=== PATIENT | male | born 1975 | race Caucasian/White ===

== ENCOUNTER 2019-08-15 10:03 | Emergency (ER) | payer SELFPAY ==
[~2019-08-15] VITALS: Ht 175 cm; Wt 91.0 kg
[~2019-08-15 10:03] MED LIST: AMOX-358 PO
[2019-08-15] MEDS ORDERED: ASPIRIN 81 MG CHEW (CHILDREN'S ASA) ONE (10:13)
[2019-08-15] MEDS ORDERED: NITROGLYCERIN 0.4 MG SL TABS BTL 25'S SL ONE (10:13)
[2019-08-15] MEDS ORDERED: ASPIRIN 81 MG CHEW (CHILDREN'S ASA) PO ONE (10:15)
[2019-08-15] MEDS: NITROGLYCERIN 0.4 MG SL TABS BTL 25'S SL PRN ×2 (10:19→10:28)
--- NOTE | 2019-08-15 10:21 | NUR ---
B/P 122/81
[2019-08-15 10:30] LABS: BASOPHILS % (AUTO) 0 % (0-10); EOSINOPHILS # (AUTO) 0.2 10^3/uL (0.0-0.3); EOSINOPHILS % (AUTO) 3 % (0-10); HEMATOCRIT 47 % (40-54); LYMPHOCYTES % (AUTO) 37 % (12-44); MEAN CORPUSCULAR HEMOGLOBIN 30 PG (25-34); MEAN CORPUSCULAR HGB CONC 34 G/DL (32-36); MEAN CORPUSCULAR VOLUME 88 FL (80-99); MEAN PLATELET VOLUME 9.5 FL (7.4-10.4); MONOCYTES # (AUTO) 0.8 X 10^3 (0.0-1.0); MONOCYTES % (AUTO) 10 % (0-12); NEUTROPHILS # (AUTO) 4.1 X 10^3 (1.8-7.8); NEUTROPHILS % (AUTO) 51 % (42-75); PLATELET COUNT 268 10^3/uL (130-400); RED CELL DISTRIBUTION WIDTH 12.9 % (10.0-14.5); WHITE BLOOD COUNT 8.2 10^3/uL (4.3-11.0)
--- NOTE | 2019-08-15 10:31 | NUR ---
CURRENT C/P 4/10 PT STATES REPRODUCABLE
[2019-08-15 10:36] LABS: INR 0.9 (0.8-1.4); PROTHROMBIN TIME PATIENT 12.5 SEC (12.2-14.7)
[2019-08-15 10:43] LABS: ALANINE AMINOTRANSFERASE 29 U/L (0-55); ALBUMIN 4.6 GM/DL (3.2-4.5); ALKALINE PHOSPHATASE 109 U/L (40-136); BILIRUBIN,TOTAL 0.4 MG/DL (0.1-1.0); BUN/CREATININE RATIO 20; CALCIUM 9.3 MG/DL (8.5-10.1); CARBON DIOXIDE 22 MMOL/L (21-32); CHLORIDE 106 MMOL/L (98-107); CREATININE SERUM 0.91 MG/DL (0.60-1.30); GFR ESTIMATED > 60; GLUCOSE 97 MG/DL (70-105); MAGNESIUM 1.9 MG/DL (1.6-2.4); POTASSIUM 3.9 MMOL/L (3.6-5.0); SODIUM 139 MMOL/L (135-145); TOTAL PROTEIN 7.4 GM/DL (6.4-8.2)
--- NOTE | 2019-08-15 11:04 | Diagnostic Imaging Report ---
INDICATION: Severe chest pain. FINDINGS: Lungs clear, no failure, effusion or pneumothorax. IMPRESSION: Negative. Dictated by: Dictated on workstation # [id number]
[2019-08-15] MEDS ORDERED: NS IV 1000 ML 1,000 ML IV ONE (11:21)
[2019-08-15] MEDS ORDERED: KETOROLAC 30 MG/ML VIAL IVP ONE (11:30)
--- NOTE | 2019-08-15 13:40 | ED Chest Pain ---
General Chief Complaint: Chest Pain Stated Complaint: CHEST PAIN Nursing Triage Note: PT CO OF CHEST PAIN STARTED YESTERDAY AND WENT AWAY AND STARTED AGAIN THIS AM AT 0900 RATES PAIN 5/10. DENIES N OR DIAPHORESIS. CO OF SOME DIZZINESS. CHEST PAIN IS REPRODUCABLE Nursing Sepsis Screen: No Definite Risk Source: patient Exam Limitations: no limitations History of Present Illness Date Seen by Provider: Aug 15, 2019 Time Seen by Provider: 10:06 Initial Comments This 44-year-old gentleman presents to the emergency room complaining of left chest pain first started yesterday while at work. He was very dizzy and lightheaded in association with left-sided chest pain. He felt clammy at the time. He took aspirin and rested. Symptoms resolved and he returned to his normal state yesterday evening. This morning he had a similar episode of dizziness and lightheadedness with walking. Chest pain also returned. He was dizzy while driving to the hospital. Chest pain started around 08:30. He only drinks occasionally, a couple times a month. He does not smoke but does have secondhand smoke exposure. He denies any drug use. He has no history of heart problems. Allergies and Home Medications Allergies Coded Allergies: No Known Drug Allergies (Unverified , 06/15/16) Home Medications No Active Prescriptions or Reported Meds Patient Home Medication List Home Medication List Reviewed: Yes Review of Systems Review of Systems Constitutional: see HPI EENTM: No Symptoms Reported Respiratory: No Symptoms Reported Cardiovascular: See HPI Gastrointestinal: No Symptoms Reported Genitourinary: No Symptoms Reported Musculoskeletal: no symptoms reported Skin: see HPI Psychiatric/Neurological: No Symptoms Reported Endocrine: No Symptoms Reported Hematologic/Lymphatic: No Symptoms Reported Past Omtajbu-Bjpnjj-Iuswam Hx Patient Social History Alcohol Use: Rarely Uses Recreational Drug Use: No Smoking Status: Never a Smoker Recent Foreign Travel: No Contact w/Someone Who Travel: No Recent Infectious Disease Expo: No Recent Hopitalizations: No Physical Abuse: No Sexual Abuse: No Seasonal Allergies Seasonal Allergies: No Past Medical History Surgeries: Yes Orthopedic, Tonsillectomy Respiratory: No Cardiac: No Neurological: No Reproductive Disorders: No Gastrointestinal: No Musculoskeletal: Yes (carpal tunnel syndrome) Endocrine: No HEENT: No Cancer: No Psychosocial: No Integumentary: No Physical Exam Vital Signs Vital Signs - First Documented 08/15/19 10:05 Temp 36.3 Pulse 68 Resp 18 B/P (MAP) 148/97 (114) Pulse Ox 99 O2 Delivery Room Air Capillary Refill : Less Than 3 Seconds Height, Weight, BMI Height: 5'10" Weight: 200lbs. oz. [id number]; 29.00 BMI Method:Stated General Appearance: No Apparent Distress, WD/WN, Other (appears fatigued) HEENT: PERRL/EOMI, Normal ENT Inspection Neck: Normal Inspection Respiratory: Lungs Clear, Normal Breath Sounds, No Accessory Muscle Use, No Res piratory Distress, Other (left mid chest tender to palpation) Cardiovascular: Regular Rate, Rhythm, No Edema, No Murmur, Normal Peripheral Pulses Gastrointestinal: Normal Bowel Sounds, Non Tender, Soft Extremity: Normal Capillary Refill, Normal Inspection, Non Tender, No Calf Tenderness, No Pedal Edema, Other (negative Gurpreet) Neurologic/Psychiatric: Alert, Oriented x3, No Motor/Sensory Deficits, Normal Mood/Affect, content strategy lead II-XII Norm as Tested Skin: Normal Color, Warm/Dry Progress/Results/Core Measures Results/Orders Lab Results Laboratory Tests Test 08/15/19 10:12 08/15/19 12:35 Range/Units White Blood Count 8.2 4.3-11.0 10^3/uL Red Blood Count 5.33 4.35-5.85 10^6/uL Hemoglobin 16.0 13.3-17.7 G/DL Hematocrit 47 40-54 % Mean Corpuscular Volume 88 80-99 FL Mean Corpuscular Hemoglobin 30 25-34 PG Mean Corpuscular Hemoglobin Concent 34 32-36 G/DL Red Cell Distribution Width 12.9 10.0-14.5 % Platelet Count 268 130-400 10^3/uL Mean Platelet Volume 9.5 7.4-10.4 FL Neutrophils (%) (Auto) 51 42-75 % Lymphocytes (%) (Auto) 37 12-44 % Monocytes (%) (Auto) 10 0-12 % Eosinophils (%) (Auto) 3 0-10 % Basophils (%) (Auto) 0 0-10 % Neutrophils # (Auto) 4.1 1.8-7.8 X 10^3 Lymphocytes # (Auto) 3.0 1.0-4.0 X 10^3 Monocytes # (Auto) 0.8 0.0-1.0 X 10^3 Eosinophils # (Auto) 0.2 0.0-0.3 10^3/uL Basophils # (Auto) 0.0 0.0-0.1 10^3/uL Prothrombin Time 12.5 12.2-14.7 SEC INR Comment 0.9 0.8-1.4 Activated Partial Thromboplast Time 33 24-35 SEC D-Dimer < 0.27 0.00-0.49 UG/ML Sodium Level 139 135-145 MMOL/L Potassium Level 3.9 3.6-5.0 MMOL/L Chloride Level 106 98-107 MMOL/L Carbon Dioxide Level 22 21-32 MMOL/L Anion Gap 11 5-14 MMOL/L Blood Urea Nitrogen 18 7-18 MG/DL Creatinine 0.91 0.60-1.30 MG/DL Estimat Glomerular Filtration Rate > 60 BUN/Creatinine Ratio 20 Glucose Level 97 70-105 MG/DL Calcium Level 9.3 8.5-10.1 MG/DL Corrected Calcium 8.5-10.1 MG/DL Magnesium Level 1.9 1.6-2.4 MG/DL Total Bilirubin 0.4 0.1-1.0 MG/DL Aspartate Amino Transf (AST/SGOT) 17 5-34 U/L Alanine Aminotransferase (ALT/SGPT) 29 0-55 U/L Alkaline Phosphatase 109 40-136 U/L Myoglobin 29.0 10.0-92.0 NG/ML Troponin I < 0.028 < 0.028 <0.028 NG/ML Total Protein 7.4 6.4-8.2 GM/DL Albumin 4.6 H 3.2-4.5 GM/DL My Orders Orders - GERALDINE ROMERO MD Cbc With Automated Diff (08/15/19 10:15) Magnesium (08/15/19 10:15) Chest 1 View, Ap/Pa Only (08/15/19 10:15) Ekg Tracing (08/15/19 10:15) Comprehensive Metabolic Panel (08/15/19 10:15) Myoglobin Serum (08/15/19 10:15) Protime With Inr (08/15/19 10:15) Partial Thromboplastin Time (08/15/19 10:15) O2 (08/15/19 10:15) Monitor-Rhythm Ecg Trace Only (08/15/19 10:15) Ed Iv/Invasive Line Start (08/15/19 10:15) Troponin I (08/15/19 10:15) Nitroglycerin 0.4 Mg Btl 25's (Nitrostat (08/15/19 10:15) Aspirin Chewable Tablet (Baby Aspirin Ch (08/15/19 10:15) Nitroglycerin 0.4 Mg Btl 25's (Nitrostat (08/15/19 10:13) Aspirin Chewable Tablet (Baby Aspirin Ch (08/15/19 10:13) Fibrin Degradation Products (08/15/19 10:56) Troponin I (08/15/19 12:30) Ekg Tracing (08/15/19 11:19) Ketorolac Injection (Toradol Injection) (08/15/19 11:30) Ed Iv/Invasive Line Start (08/15/19 11:21) Ns Iv 1000 Ml (Sodium Chloride 0.9%) (08/15/19 11:21) Medications Given in ED Current Medications Medications Dose Ordered Sig/Nikunj Route Start Time Stop Time Status Last Admin Dose Admin Aspirin 324 mg ONCE ONCE PO 08/15/19 10:15 08/15/19 10:17 DC 08/15/19 10:18 324 MG Ketorolac Tromethamine 30 mg ONCE ONCE IVP 08/15/19 11:30 08/15/19 11:31 DC 08/15/19 11:46 30 MG Nitroglycerin 0.4 mg UD PRN SL 08/15/19 10:15 08/15/19 14:12 DC 08/15/19 10:28 0.4 MG Sodium Chloride 1,000 ml @ 0 mls/hr Q0M ONCE IV 08/15/19 11:21 08/15/19 11:22 DC 08/15/19 11:46 1,000 MLS/HR Vital Signs/I&O 08/15/19 08/15/19 08/15/19 10:05 10:05 13:45 Temp 36.3 Pulse 68 77 Resp 18 18 B/P (MAP) 148/97 (114) 117/86 (114) Pulse Ox 99 99 O2 Delivery Room Air Room Air Blood Pressure Mean: 114 POS Progress Progress Note : Time: 13:37 Progress Note Initial workup was unremarkable. Aspirin and nitroglycerin were administered. He had slight improvement of pain with nitroglycerin. Patient was assessed by Dr. Sheets in the ER. Features of his pain seemed atypical, especially with reproduction of pain with palpation. A repeat troponin was drawn at 12:30, 4 hours after onset of pain this morning. Repeat troponin and repeat EKG were both unremarkable. Toradol and a liter of IV fluid were administered. Patient was asymptomatic after these therapies. An appointment was made for the following Wednesday at Dr. Sheets's request. Initial ECG Impression Date: Aug 15, 2019 Initial ECG Impression Time: 10:07 Initial ECG Rate: 66 Initial ECG Rhythm: Normal Sinus Initial ECG Intervals: Normal Initial ECG Impression: Normal Diagnostic Imaging Diagonstic Imaging: Xray Plain Films/CT/US/NM/MRI: chest Comments Chest x-ray viewed by me and report reviewed. See report below: NAME: DANIEL RAYMOND [facility] REC#: [id number] PT STATUS: DEP ER : 1975 PHYSICIAN: GERALDINE ROMERO MD ADMIT DATE: 08/15/19/ER Signed Date of Exam:08/15/19 CHEST 1 VIEW, AP/PA ONLY INDICATION: Severe chest pain. FINDINGS: Lungs clear, no failure, effusion or pneumothorax. IMPRESSION: Negative. Dictated by: Dictated on workstation # [id number] Dict: 08/15/19 1059 Trans: 08/15/19 1728 CV [id number] Interpreted by: OH CRABTREE Electronically signed by: [place] CRABTREE 08/15/198 Departure Impression Primary Impression: Atypical chest pain Disposition: 01 HOME, SELF-CARE Condition: Improved Departure-Patient Inst. Decision time for Depature: 13:39 Referrals: MARTHA SHEETS MD [employer] [facility],LOCAL PHYSICIAN (PCP) Primary Care Physician Patient Instructions: Chest Pain Add. Discharge Instructions: Follow-up with Dr. Sheets in his office at 3:00 p.m. on Wednesday, August 21. Take an aspirin 81 mg daily until otherwise instructed. Return to the emergency room if you are having recurrent or worsening symptoms. All discharge instructions reviewed with patient and/or family. Voiced understanding. Scripts No Active Prescriptions or Reported Meds Copy Copies To 1: MARTHA SHEETS MD FACP FACC CCDS GERALDINE ROMERO MD Aug 15, 2019 13:40 POS
[2019-08-15 13:45] VITALS: BP 117/86
--- NOTE | 2019-08-15 17:25 | Consultation-Cardiology ---
HPI-Cardiology Cardiology Consultation: Date of Consultation 08/15/19 Time Seen by a Provider: 11:30 Date of Admission Attending Physician Admitting Physician Physician requesting consult: Dr Schroeder (ER physician) Consulting Physician MARTHA SHEETS MD, FACP, FACC HPI: Chief Complaint: CC: Chest discomfort HPI: 44 yo man with episodes of chest pain since yesterday: two episodes, each lasting several hours, localized to a small area of to the left of the left sternal border, worse with palpation, associated with a feeling of dizziness, w/o any meaningful relief from s/l NTG, mild to mod in intensity, w/o radiation. Denies shortness of breath. Denies palp or syncope or leg swelling Review of Systems-Cardiology Review of Systems Constitutional: lightheadedness, malaise; No other Eyes: No vision change Ears/Nose/Throat: No ear discharge, No nasal drainage, No recent hearing loss Respiratory: As described under HPI Cardiovascular: As described under HPI Gastrointestinal: No constipation, No diarrhea, No nausea, No vomiting Genitourinary: No dysuria, No hematuria, No urine frequency changes Musculoskeletal: No back pain, No joint pain Skin: No rash, No ulcerations Psychiatric/Neurological: No seizure, No focal weakness, No syncope Hematologic: No bleeding abnormalities JDT-Zippld-Qbsnjz Hx Patient Social History Alcohol Use: Rarely Uses Recreational Drug Use: No Smoking Status: Never a Smoker Recent Foreign Travel: No Recent Infectious Disease Expo: No Hospitalization with Isolation: Denies Past Medical History PMH As described under Assessment. Family Medical History Family Medical History: Does not report fam h/o early CAD or sudden cardiac Allergies and Home Medications Allergies Coded Allergies: No Known Drug Allergies (Unverified , 06/15/16) Home Medications No Active Prescriptions or Reported Meds Patient Home Medication List Home Medication List Reviewed: Yes Physical Exam-Cardiology Physical Exam Vital Signs/I&O 08/15/19 08/15/19 08/15/19 10:05 10:05 13:45 Temp 36.3 Pulse 68 77 Resp 18 18 B/P (MAP) 148/97 (114) 117/86 (114) Pulse Ox 99 99 O2 Delivery Room Air Room Air Capillary Refill : Less Than 3 Seconds Constitutional: AAO x 3, well-developed, well-nourished HEENT: EOMI, hearing is well preserved, oral hygience is good; No xanthelasmas are seen Neck: carotid pulses are 2 + bilaterally, with good upstrokes Respiratory: No accessory muscle use; lungs clear to percussion, lungs clear to auscultation, other (reproducible tenderness over the costochondral junctions in the left anterior chest (pt identifies it as the same pain he presents for)) Cardiovascular: regular rate-rhythm, S1 and S2; No systolic murmur Gastrointestinal: No tender; soft; No guarding, No rebound; audible bowel sounds Extremities: No clubbing, No cyanosis, No significant edema Neurologic/Psychiatric: oriented x 3, other (moves all limbs equally) Skin: No rash on exposed areas, No ulcerations on exposed areas Data Review Labs Laboratory Tests 08/15/19 10:12: White Blood Count 8.2, Red Blood Count 5.33, Hemoglobin 16.0, Hematocrit 47, Mean Corpuscular Volume 88, Mean Corpuscular Hemoglobin 30, Mean Corpuscular Hemoglobin Concent 34, Red Cell Distribution Width 12.9, Platelet Count 268, Mean Platelet Volume 9.5, Neutrophils (%) (Auto) 51, Lymphocytes (%) (Auto) 37, Monocytes (%) (Auto) 10, Eosinophils (%) (Auto) 3, Basophils (%) (Auto) 0, Neutrophils # (Auto) 4.1, Lymphocytes # (Auto) 3.0, Monocytes # (Auto) 0.8, Eosinophils # (Auto) 0.2, Basophils # (Auto) 0.0, Prothrombin Time 12.5, INR Comment 0.9, Activated Partial Thromboplast Time 33, D-Dimer < 0.27, Sodium Level 139, Potassium Level 3.9, Chloride Level 106, Carbon Dioxide Level 22, Anion Gap 11, Blood Urea Nitrogen 18, Creatinine 0.91, Estimat Glomerular Filtration Rate > 60, BUN/Creatinine Ratio 20, Glucose Level 97, Calcium Level 9.3, Corrected Calcium , Magnesium Level 1.9, Total Bilirubin 0.4, Aspartate Amino Transf (AST/SGOT) 17, Alanine Aminotransferase (ALT/SGPT) 29, Alkaline Phosphatase 109, Myoglobin 29.0, Troponin I < 0.028, Total Protein 7.4, Albumin 4.6H 08/15/19 12:35: Troponin I < 0.028 Laboratory Tests 08/15/19 10:12 A/P-Cardiology Assessment/Admission Diagnosis Chest pain, probably musculoskeletal. No evidence of ACS Discussion and Recomendations * I discussed this case with Dr Schroeder who had asked me in consultation. If ac [place] is excluded with serial cardiac enzymes and ECG and if there is no evidence of pulm embolism, it may be reasonable to d/c from cardiac standpoint. Pain is reproducible on chest palpation, indicating the possibility of costochondritis. We recommend treatment of that as directed by Dr Schroeder or patient's pcp. * I spoke with Mr Delgado and answered his CV-related questions and recommended a f/u visit with us within the next week Clinical Quality Measures AMI/AHF: ASA po Prior to arrival: MARTHA Crooks MD FACP FAC CCDS Aug 15, 2019 17:25 POS
== END 2019-08-15 13:45 | disposition home or self-care (01) ==
LOC: EDUNIT# 10:03 → ER 10:06
DX: R07.89 Other chest pain (principal); Z90.89 Acquired absence of other organs
CPT/HCPCS: 36415; 71045; 80053; 83735; 83874; 84484; 85025; 85379; 85610; 85730; 93005; 93041; 96374

== ENCOUNTER → 2021-03-10 | Outpatient (CLI) | payer OTHER | LOC: CARD 10:00 | PROVIDERS: ATTEND Internal Medicine Cardiovascular Disease | DX: I11.9 Hypertensive heart disease without heart failure (principal) | CPT/HCPCS: 93306 ==

== ENCOUNTER → 2021-03-11 | Outpatient (CLI) | payer SELFPAY ==
[~2021-03-11] MED LIST changes: +REGADENOSON 0.4 MG/5 ML SYR (LEXISCAN) IV ONE
[2021-03-11] MEDS: CATHETER FLUSH 10 ML SYR IV PRN ×2 (07:30→09:17)
[2021-03-11 09:16] VITALS: BP 137/93
== END ==
LOC: CARD 07:45
PROVIDERS: ATTEND Internal Medicine Cardiovascular Disease
DX: R53.83 Other fatigue (principal)
CPT/HCPCS: 78452; 93017; A9502

== ENCOUNTER 2022-09-29 08:39 | Emergency (ER) | payer SELFPAY ==
[~2022-09-29] VITALS: Ht 177.8 cm; Wt 95.3 kg
[~2022-09-29 08:39] MED LIST changes: -REGADENOSON 0.4 MG/5 ML SYR (LEXISCAN) IV ONE
[2022-09-29] MEDS ORDERED: KETOROLAC 30 MG/ML VIAL IVP STA (08:53)
--- NOTE | 2022-09-29 09:00 | ED Headache ---
General Stated Complaint: HEADACHE | NECK PAIN Source: patient History of Present Illness Date Seen by Provider: Sep 29, 2022 Time Seen by Provider: 08:47 Initial Comments PT ARRIVES VIA POV FROM HOME C/O LEFT LATERAL /POSTERIOR NECK PAIN THAT RADIATES TO THE LEFT POSTERIOR ASPECT OF HIS HEAD SYMPTOMS FOR THE LAST 2 WEEKS STATES SOMETIMES HIS LEFT EYE "THROBS" BUT NO CHANGES IN VISION NO NEW PARESTHESIAS OR MOTOR DEFICITS--STATES HE HAS HAD INTERMITTENT TINGLING IN HIS HANDS, HE STATES "IT'S FROM [place] COVID" ( PT DOES HAVE A HISTORY OF BILATERAL CARPAL TUNNEL, AND HAS HAD PRIOR SURGERY FOR THIS) NO FEVER AT ANY TIME NO URI/SINUS SYMPTOMS NO NAUSEA/VOMITING NO DIZZINESS OR SYNCOPE NO FEVER/SWEATS/CHILLS WENT TO [facility] LAST WEEK. NO ADJUSTMENT WAS DONE. WAS TOLD THE MUSCLES WERE REALLY TIGHT AND INFLAMED, AND THE AREA WAS MASSAGED, WITH SOME MILD RELIEF. WENT TO [facility] YESTERDAY FOR THIS PROBLEM AND STATES THEY GAVE HIM A SHOT OF TORADOL, AND TOLD HIM TO COME HERE IF IT DIDN'T HELP. HE WAS ALSO GIVEN RX FOR FLEXERIL. 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 AT WORK NO UNUSUAL ACTIVITY PT IS RIGHT HANDED NO PRIOR PROBLEMS WITH NECK PAIN OR HEADACHES. STATES HE DOES NOT TAKE ANY PRESCRIPTION MEDICATIONS, ONLY TAKES SEVERAL OVER THE COUNTER VITAMINS, SUPPLEMENTS, ETC. PT HAS HAD COVID VACCINE X 2, NO FLU VACCINE. DENIES SMOKING, ALCOHOL OR DRUG USE PCP: [facility] Allergies and Home Medications Allergies Coded Allergies: No Known Drug Allergies (Unverified , 06/15/16) Patient Home Medication List Home Medication List Reviewed: Yes Ketorolac Tromethamine (Ketorolac Tromethamine) 10 Mg Tablet, 10 MG PO Q6H Prescribed by: EMERALD DIAZ on 09/29/22 7669 Review of Systems Review of Systems Constitutional: no symptoms reported Eyes: See HPI Ears, Nose, Mouth, Throat: no symptoms reported Respiratory: no symptoms reported Cardiovascular: no symptoms reported Gastrointestinal: no symptoms reported Genitourinary: no symptoms reported Musculoskeletal: see HPI; No back pain; neck pain Skin: no symptoms reported Psychiatric/Neurological: See HPI Past Dsdqjrj-Wdixyq-Yquhfd Hx Patient Social History Tobacco Use?: No Smoking Status: Never a Smoker Smokeless Tobacco Frequency: Never a User Use of E-Cig and/or Vaping dev: No Use of E-Cig and/or Vaping Juan: Never a User Substance use?: No Alcohol Use?: No Seasonal Allergies Seasonal Allergies: No Past Medical History Surgeries: Yes (CARPAL TUNNEL SURGERY) Orthopedic, Tonsillectomy Respiratory: No Cardiac: No Neurological: No Reproductive Disorders: No Gastrointestinal: No Musculoskeletal: Yes (carpal tunnel syndrome) Endocrine: No HEENT: Yes (S/P TONSILLECTOMY) Tonsilitis Cancer: No Psychosocial: No Integumentary: No Physical Exam Vital Signs Vital Signs - First Documented 09/29/22 08:45 Temp 35.3 Pulse 66 Resp 17 B/P (MAP) 146/111 (123) Pulse Ox 98 O2 Delivery Room Air Capillary Refill : Height, Weight, BMI Height: 5'10" Weight: 200lbs. oz. 90.313339kn; 29.00 BMI Method:Stated General Appearance: WD/WN, no apparent distress HEENT: PERRL/EOMI, normal ENT inspection, TMs normal, pharynx normal Neck: other (TENDERNESS AND MUSCLE SPASMS TO LEFT CERVICAL PARAVERTEBRAL AND LEFT TRAPEZUIS MUSCLES. PALAPATION REPRODUCES SYMPTOMS. ) Cardiovascular: regular rate, rhythm, no murmur Respiratory: normal breath sounds, no respiratory distress, no accessory muscle use Gastrointestinal: normal bowel sounds, soft Back: no CVA tenderness, no vertebral tenderness Extremities: normal inspection, normal capillary refill Psychiatric: alert, oriented x 3, other (FLAT AFFECT. ) Crainal Nerves: normal hearing, normal speech, PERRL Coordination/Gait: normal finger to nose, normal gait Motor/Sensory: no motor deficit, no sensory deficit, no pronator drift Skin: normal color, warm/dry; No rash Progress/Results/Core Measures Results/Orders Lab Results Laboratory Tests Test 09/29/22 08:54 09/29/22 09:15 Range/Units Influenza Type A (RT-PCR) Not Detected Not Detecte Influenza Type B (RT-PCR) Not Detected Not Detecte SARS-CoV-2 RNA (RT-PCR) Not Detected Not Detecte White Blood Count 6.9 4.3-11.0 10^3/uL Red Blood Count 5.32 4.30-5.52 10^6/uL Hemoglobin 16.2 13.3-17.7 g/dL Hematocrit 47 40-54 % Mean Corpuscular Volume 88 80-99 fL Mean Corpuscular Hemoglobin 31 25-34 pg Mean Corpuscular Hemoglobin Concent 35 32-36 g/dL Red Cell Distribution Width 12.3 10.0-14.5 % Platelet Count 236 130-400 10^3/uL Mean Platelet Volume 9.4 9.0-12.2 fL Immature Granulocyte % (Auto) 0 % Neutrophils (%) (Auto) 50 42-75 % Lymphocytes (%) (Auto) 37 12-44 % Monocytes (%) (Auto) 9 0-12 % Eosinophils (%) (Auto) 4 0-10 % Basophils (%) (Auto) 1 0-10 % Neutrophils # (Auto) 3.5 1.8-7.8 10^3/uL Lymphocytes # (Auto) 2.6 1.0-4.0 10^3/uL Monocytes # (Auto) 0.6 0.0-1.0 10^3/uL Eosinophils # (Auto) 0.3 0.0-0.3 10^3/uL Basophils # (Auto) 0.0 0.0-0.1 10^3/uL Immature Granulocyte # (Auto) 0.0 0.0-0.1 10^3/uL Erythrocyte Sedimentation Rate 3 0-15 MM/HR Sodium Level 140 135-145 MMOL/L Potassium Level 3.8 3.6-5.0 MMOL/L Chloride Level 107 98-107 MMOL/L Carbon Dioxide Level 27 21-32 MMOL/L Anion Gap 6 5-14 MMOL/L Blood Urea Nitrogen 18 7-18 MG/DL Creatinine 0.79 0.60-1.30 MG/DL Estimat Glomerular Filtration Rate 110 BUN/Creatinine Ratio 23 Glucose Level 106 H 70-105 MG/DL Calcium Level 9.2 8.5-10.1 MG/DL Corrected Calcium 8.9 8.5-10.1 MG/DL Magnesium Level 2.1 1.6-2.4 MG/DL Total Bilirubin 0.4 0.1-1.0 MG/DL Aspartate Amino Transf (AST/SGOT) 20 5-34 U/L Alanine Aminotransferase (ALT/SGPT) 35 0-55 U/L Alkaline Phosphatase 91 40-136 U/L C-Reactive Protein High Sensitivity 0.15 0.00-0.50 MG/DL Total Protein 7.0 6.4-8.2 GM/DL Albumin 4.4 3.2-4.5 GM/DL My Orders Orders - EMERALD DIAZ DO Ed Iv/Invasive Line Start (09/29/22 08:53) Monitor-Rhythm Ecg Trace Only (09/29/22 08:53) Ct Head/Face/Cervical Wo (09/29/22 08:53) Cbc With Automated Diff (09/29/22 08:53) Comprehensive Metabolic Panel (09/29/22 08:53) Hs C Reactive Protein (09/29/22 08:53) Magnesium (09/29/22 08:53) Erythrocyte Sedimentation Rate (09/29/22 08:53) Ketorolac Injection (Toradol Injection) (09/29/22 08:53) Covid 19 Inhouse Test (09/29/22 08:53) Influenza A And B By Pcr (09/29/22 08:53) Isolation Central Supply Req (09/29/22 08:53) Vital Signs/I&O 09/29/22 08:45 Temp 35.3 Pulse 66 Resp 17 B/P (MAP) 146/111 (123) Pulse Ox 98 O2 Delivery Room Air Progress Progress Note : Progress Note PPE WORN COVID AND FLU TESTING DONE LAB AND CT SCAN ORDERED GIVEN TORADOL--STATES HEADACHE IS MUCH BETTER UNEVENTFUL ER STAY. PT STILL MILDLY ELEVATED. STATES IT HAS BEEN THIS WAY FOR SEVERAL MONTHS. ADVISED THAT BLOOD PRESSURE COULD BE CONTRIBUTING TO HIS SYMPTOMS, AND ADVISED THAT HE NEEDED TO FOLLOW UP WITH [facility] FOR FURTHER EVALUATION, AND POSSIBLE TREATMENT OF BLOOD PRESSURE REVIEWED TEST RESULTS, ANTICIPATED COURSE, SYMPTOMATIC TREATMENT, MEDICATIONS, NEED FOR FOLLOW UP AND RETURN PRECAUTIONS. Diagnostic Imaging Comments CT HEAD/FACE/CERVICAL SPINE--PER RADIOLOGIST REPORT AT 0948 INDICATION: 3 weeks of posterior head pain. No known trauma No priors HEAD: No hemorrhage, hydrocephalus, cerebral edema, mass, mass effect nor evidence for elevated pressures. Basilar cisterns patent. There is no sulcal effacement. No loss of the hyatt-white matter differentiations. Mastoid air cells and calvarium unremarkable. CT FACIAL BONES: Congruent with the provided history there is no facial fracture or hemo-sinus. CERVICAL SPINE: Cervical statures normal. The alignment anatomic. No fracture. No substantial stenosis. Craniocervical relationship in the central skull base unremarkable. Reviewed: Reviewed by Me Departure Impression Primary Impression: Musculoskeletal disorder involving posterior cervical region Additional Impression: HTN (hypertension) Disposition: HOME, SELF-CARE Condition: Improved Departure-Patient Inst. Decision time for Depature: 10:46 Referrals: PENDING SALE TO [facility] (PCP/Family) Primary Care Physician Patient Instructions: DASH Diet, Generalized Neck Pain (DC), High Blood Pressure ED, Neck Stretches Add. Discharge Instructions: HOME, REST MOIST HEAT TO NECK AT 20 MINUTE INTERVALS TAKE FLEXERIL EVERY NIGHT. FOLLOW UP WITH YOUR [facility] FOR FURTHER CARE FOLLOW UP WITH [facility] FOR BLOOD PRESSURE Scripts Ketorolac Tromethamine (Ketorolac Tromethamine) 10 Mg Tablet 10 MG PO Q6H for Pain, #15 TAB Prov: EMERALD DIAZ DO 09/29/22 EMERALD DIAZ DO Sep 29, 2022 09:00
[2022-09-29 09:21] LABS: BASOPHILS % (AUTO) 1 % (0-10); EOSINOPHILS # (AUTO) 0.3 10^3/uL (0.0-0.3); EOSINOPHILS % (AUTO) 4 % (0-10); HEMATOCRIT 47 % (40-54); HEMOGLOBIN 16.2 g/dL (13.3-17.7); LYMPHOCYTES # (AUTO) 2.6 10^3/uL (1.0-4.0); LYMPHOCYTES % (AUTO) 37 % (12-44); MEAN CORPUSCULAR HEMOGLOBIN 31 pg (25-34); MEAN CORPUSCULAR HGB CONC 35 g/dL (32-36); MEAN CORPUSCULAR VOLUME 88 fL (80-99); MEAN PLATELET VOLUME 9.4 fL (9.0-12.2); MONOCYTES # (AUTO) 0.6 10^3/uL (0.0-1.0); MONOCYTES % (AUTO) 9 % (0-12); NEUTROPHILS # (AUTO) 3.5 10^3/uL (1.8-7.8); NEUTROPHILS % (AUTO) 50 % (42-75); PLATELET COUNT 236 10^3/uL (130-400); WHITE BLOOD COUNT 6.9 10^3/uL (4.3-11.0)
--- NOTE | 2022-09-29 09:43 | Diagnostic Imaging Report ---
PROCEDURE: CT head, face, and cervical spine without contrast. TECHNIQUE: Multiple contiguous axial images were obtained through the head, neck, and facial bones without the use of intravenous contrast. Sagittal and coronal reformations through the cervical spine and facial bones were also performed. Auto Exposure Controls were utilized during the CT exam to meet ALARA standards for radiation dose reduction. INDICATION: 3 weeks of posterior head pain. No known trauma No priors HEAD: No hemorrhage, hydrocephalus, cerebral edema, mass, mass effect nor evidence for elevated pressures. Basilar cisterns patent. There is no sulcal effacement. No loss of the hyatt-white matter differentiations. Mastoid air cells and calvarium unremarkable. CT FACIAL BONES: Congruent with the provided history there is no facial fracture or hemo-sinus. CERVICAL SPINE: Cervical statures normal. The alignment anatomic. No fracture. No substantial stenosis. Craniocervical relationship in the central skull base unremarkable. IMPRESSION: Unremarkable CT head, facial bones and cervical spine. Dictated by: Dictated on workstation # [id number]
[2022-09-29 09:54] LABS: ERYTHROCYTE SEDIMENTATION RATE 3 MM/HR (0-15)
[2022-09-29 10:13] LABS: ALBUMIN 4.4 GM/DL (3.2-4.5); BILIRUBIN,TOTAL 0.4 MG/DL (0.1-1.0); CALCIUM 9.2 MG/DL (8.5-10.1); CREATININE SERUM 0.79 MG/DL (0.60-1.30); MAGNESIUM 2.1 MG/DL (1.6-2.4); POTASSIUM 3.8 MMOL/L (3.6-5.0)
[2022-09-29] MEDS ORDERED: KETO10TA PO (10:49)
[2022-09-29 11:06] VITALS: BP 153/111
== END 2022-09-29 10:55 | disposition home or self-care (01) ==
LOC: EDUNIT# 08:39 → ER 08:41
DX: M54.2 Cervicalgia (principal); I10 Essential (primary) hypertension; Z20.822 Contact with and (suspected) exposure to COVID-19; Z86.16 Personal history of COVID-19
CPT/HCPCS: 36415; 70450; 70486; 72125; 80053; 83735; 85025; 85652; 86141; 87636; 93041